=== PATIENT | male | born 1960 | race Caucasian/White ===

== ENCOUNTER 2019-11-19 06:34 | Emergency (ER) | payer SELFPAY ==
[2019-11-19 08:20] LABS: ABSOLUTE EOSINOPHILS # (AUTO) 0.2 10^3/uL (0.0-0.6); ABSOLUTE LYMPHOCYTES (AUTO) 1.6 10^3/uL (0.5-4.7); ABSOLUTE MONOCYTES (AUTO) 0.5 10^3/uL (0.1-1.4); ABSOLUTE NEUT (AUTO) 3.8 10^3/uL (1.7-8.2); BASOPHILS % (AUTO) 0.5 % (0-2); EOSINOPHILS % (AUTO) 2.6 % (0-6); HEMATOCRIT 40.3 % (37.9-51.0); HEMOGLOBIN 14.7 g/dL (13.5-17.0); LYMPHOCYTES % (AUTO) 26.1 % (13-45); MEAN CORPUSCULAR HEMOGLOBIN 34.5 pg (27.0-33.4); MEAN CORPUSCULAR HGB CONC 36.4 g/dL (32.0-36.0); MEAN CORPUSCULAR VOLUME 95 fl (80-97); MONOCYTES % (AUTO) 8.1 % (3-13); PLATELET COUNT 100 10^3/uL (150-450); RED BLOOD COUNT 4.25 10^6/uL (4.35-5.55); RED CELL DISTRIBUTION WIDTH 13.4 % (11.5-14.0); SEGMENTED NEUTROPHILS % (AUTO) 62.7 % (42-78); TOTAL CELLS COUNTED % (AUTO) 100 %
[2019-11-19 08:25] LABS: ALBUMIN 3.9 g/dL (3.5-5.0); ALKALINE PHOSPHATASE 67 U/L (38-126); ANION GAP 9 (5-19); ASPARTATE AMINO TRANSFERASE 25 U/L (17-59); BILIRUBIN,DIRECT 0.3 mg/dL (0.0-0.4); BILIRUBIN,TOTAL 0.8 mg/dL (0.2-1.3); BLOOD UREA NITROGEN 11 mg/dL (7-20); CALCIUM 9.4 mg/dL (8.4-10.2); CARBON DIOXIDE 27 mmol/L (22-30); CHLORIDE 102 mmol/L (98-107); GLUCOSE 157 mg/dL (75-110); POTASSIUM 4.2 mmol/L (3.6-5.0); TOTAL PROTEIN 6.6 g/dL (6.3-8.2)
--- NOTE | 2019-11-19 08:42 | EKG REPORT ---
SEVERITY:- ABNORMAL ECG - SINUS RHYTHM PROBABLE LEFT ATRIAL ABNORMALITY RBBB AND LAFB : Confirmed by: Jaun Burns MD 19-Nov-2019 08:42:25
--- NOTE | 2019-11-19 08:45 | RADIOLOGY REPORT (SQ) ---
EXAM DESCRIPTION: CHEST SINGLE VIEW IMAGES COMPLETED DATE/TIME: 11/19/2019 8:22 am REASON FOR STUDY: Sob COMPARISON: None. EXAM PARAMETERS: NUMBER OF VIEWS: One view. TECHNIQUE: Single frontal radiographic view of the chest acquired. RADIATION DOSE: NA LIMITATIONS: None. FINDINGS: LUNGS AND PLEURA: No opacities, masses or pneumothorax. No pleural effusion. MEDIASTINUM AND HILAR STRUCTURES: No masses. Contour normal. HEART AND VASCULAR STRUCTURES: Heart normal in size. Normal vasculature. BONES: No acute findings. HARDWARE: Pacemaker pain and sternotomy wires. OTHER: No other significant finding. IMPRESSION: NO ACUTE RADIOGRAPHIC FINDING IN THE CHEST. TECHNICAL DOCUMENTATION: JOB ID: [id number] [employer]- All Rights Reserved Reading location - IP/workstation name: [email or web address]
[2019-11-19 09:46] LABS: APPEARANCE,URINE CLEAR; BILIRUBIN,URINE NEGATIVE (NEGATIVE); COLOR,URINE YELLOW; GLUCOSE, URINE 50 mg/dL (NEGATIVE); KETONES,URINE NEGATIVE (NEGATIVE); LEUKOCYTE ESTERASE,URINE NEGATIVE (NEGATIVE); NITRITE,URINE NEGATIVE (NEGATIVE); PROTEIN,URINE NEGATIVE (NEGATIVE); URINE SPECIFIC GRAVITY 1.024
--- NOTE | 2019-11-19 11:56 | ER Document Report ---
Entered by ADDI MURRY SCRIBE 11/19/19 0729 Acting as scribe for:NICOLE CRYSTAL MD ED Respiratory Problem - General Chief Complaint: Shortness Of Breath Stated Complaint: SHORTNESS OF BREATH Mode of Arrival: Medic Information source: Patient Notes: This 59 year old male patient brought in by EMS from home presents to the ED today with complaints of sudden onset shortness of breath that started just prior to arrival. Patient states that he woke up and felt like he couldn't breathe and that the more he tried, the worse it became. Patient was alert and in no acute respiratory distress with stable vital signs per EMS, but they brought him in because of his cardiac history that includes hypertension. Patient notes that he had a aortic valve replacement in 2017 and required a pacemaker postop. He mentions a history of anxiety with panic attacks and states that this feels similar to prior episodes. He is a current every day smoker. Denies any chest pain, fever, chills, or cough. - Related Data Allergies/Adverse Reactions: No Known Allergies Allergy (Verified 11/19/19 06:53) Home Medications: metformin. Clopidogrel. Losartan. metoprolol. atorvastatin Past Medical History - General Information source: Patient - Social History Smoking Status: Current Every Day Smoker Chew tobacco use (# tins/day): No Smoking Education Provided: No Frequency of alcohol use: None Drug Abuse: None Family History: Reviewed & Not Pertinent - Past Medical History Cardiac Medical History: Reports: Hx Hypertension Endocrine Medical History: Reports: Hx Diabetes Mellitus Type 2 Psychiatric Medical History: Reports: Hx Anxiety Past Surgical History: Reports: Hx Appendectomy, Hx Cholecystectomy, Hx Orthopedic Surgery - Bilateral knee, left hip, Hx Pacemaker - 2016, Hx Valve Replacement - Aortic, 2017 Review of Systems - Review of Systems Constitutional: See HPI. denies: Chills, Fever EENT: No symptoms reported Cardiovascular: See HPI. denies: Chest pain Respiratory: See HPI, Short of breath. denies: Cough Gastrointestinal: No symptoms reported Genitourinary: No symptoms reported Male Genitourinary: No symptoms reported Musculoskeletal: No symptoms reported Skin: No symptoms reported Hematologic/Lymphatic: No symptoms reported Neurological/Psychological: No symptoms reported -: Yes All other systems reviewed and negative Physical Exam - Vital signs Vitals: Temp Pulse Resp BP Pulse Ox 97.8 F 66 19 140/59 H 98 11/19/19 06:58 11/19/19 06:58 11/19/19 06:58 11/19/19 06:58 11/19/19 06:58 - General General appearance: Appears well, Alert In distress: None - HEENT Head: Normocephalic, Atraumatic Eyes: Normal Pupils: PERRL - Respiratory Respiratory status: No respiratory distress Chest status: Nontender Breath sounds: Normal Chest palpation: Normal - Cardiovascular Rhythm: Regular Heart sounds: Normal auscultation, S1 appreciated, S2 appreciated Murmur: No Friction rub: No Gallop: None auscultated - Abdominal Inspection: Normal Distension: No distension Bowel sounds: Normal Tenderness: Nontender - Abdomen soft Organomegaly: No organomegaly - Back Back: Normal, Nontender - Extremities General upper extremity: Normal inspection General lower extremity: Normal inspection. No: Edema - Neurological Neuro grossly intact: Yes Orientation: AAOx4 [place] Coma Scale Eye Opening: Spontaneous [place] Coma Scale Verbal: Oriented [place] Coma Scale Motor: Obeys Commands [place] Coma Scale Total: 15 - Psychological Associated symptoms: Normal affect, Normal mood - Skin Skin Temperature: Warm Skin Moisture: Dry Skin Color: Normal Course - Re-evaluation Re-evalutation: 11/19/19 08:06 Patient resting comfortably at this time. Not having any signs of distress shortness of breath or chest pain. 11/19/19 11:43 Patient reports he has no further shortness of breath and has been comfortable since he has been in the emergency department without any distress. Denies any chest pain. Patient has had 2 troponin tests, and both are flat across at the normal less than detectable level. 11/19/19 11:52 Discussed with patient if he has been exposed to anyone with COVID-19. Patient states he has not been exposed anyone with COVID-19 that he is aware of and is never been tested for and prefers not to be tested because he does not believe he has it. Either. Patient reports that he has no symptoms of cough fever chills muscle aches diarrhea vomiting chills or fever sore throat or headache. Patient denies any loss of taste or smell and states he has none of the signs and symptoms - Vital Signs Vital signs: Temp Pulse Resp BP Pulse Ox 97.8 F 64 20 121/86 H 98 11/19/19 10:37 11/19/19 10:37 11/19/19 10:37 11/19/19 10:37 11/19/19 10:37 11/19/19 08:06 Vital signs stable pulse ox 98% on room air afebrile respiratory rate 19 and blood pressure 140/59 with a pulse of 66. 11/19/19 11:44 Vital signs are stable with a pulse ox of 98% respiratory rate 20 pulse of 64 afebrile and blood pressure is 121/86. - Laboratory Result Diagrams: 11/19/19 07:40 11/19/19 07:40 Laboratory results interpreted by me: 11/19/19 11/19/19 11/19/19 07:40 07:40 09:00 RBC 4.25 L MCH 34.5 H MCHC 36.4 H Plt Count 100 L Glucose 157 H Urine Glucose (UA) 50 H Urine Urobilinogen 4.0 H Glucose level is 157 patient is known diabetic and takes metformin. - Diagnostic Test Radiology reviewed: Image reviewed, Reports reviewed Radiology results interpreted by me: 11/19/19 09:03 Chest X-Ray 11/19/19 08:03 IMPRESSION: NO ACUTE RADIOGRAPHIC FINDING IN THE CHEST. Chest x-ray shows no acute process. - EKG Interpretation by Me Additional EKG results interpreted by me: 11/19/19 08:07 Twelve-lead EKG shows normal sinus rhythm rate of 65. Left atrial abnormality noted a right bundle branch block and a left anterior fascicular block noted. L left axis deviation. MA interval within normal range QT interval within normal range QRS widening with a right bundle branch block. No evidence for an acute STEMI. Discharge - Discharge Clinical Impression: Shortness of breath, Anxiety Condition: Stable Disposition: HOME, SELF-CARE Additional Instructions: Anxiety The physician feels that some of your health problems are being caused by anxiety. Anxiety affects your health in many ways. Anxiety alone can cause palpitations, sweats, chest pains, abdominal pains, shortness of breath, and headaches. It contributes to ulcer disease, high blood pressure, irritable bowel syndrome, and has been shown to cause flare-ups of many other diseases. Anxiety is not a simple disorder to treat. If the anxiety is due to recent life stresses, you may simply need time to "work through" the changes. If the anxiety is due to an underlying unhappiness with yourself or due to psychiatric disturbance, professional help will be needed. Your physician can refer you for further help if needed. Anti-anxiety medication is occasionally given if the stress is acute or if you are having trouble sleeping. Chronic or frequent use of these medications is not a good idea because the body becomes reliant on it, preventing you from dealing with life's normal stresses. Your complaint this morning was associated with a brief episode of shortness of breath this a.m. and per your history you believe it was due to an anxiety attack as you felt you could not get air in and out. I do recommend that you follow-up with your primary care physician regarding further evaluation of any anxiety disorder. There are no prescriptions added today to your discharge at this time. Forms: Smoking Cessation Education I personally performed the services described in the documentation, reviewed and edited the documentation which was dictated to the scribe in my presence, and it accurately records my words and actions.
[2019-11-19 12:18] VITALS: BP 140/75
== END 2019-11-19 12:18 | disposition home or self-care (01) ==
LOC: ER 06:34
DX: R06.02 Shortness of breath (principal); F41.9 Anxiety disorder, unspecified; I10 Essential (primary) hypertension; E11.9 Type 2 diabetes mellitus without complications; Z90.49 Acquired absence of other specified parts of digestive tract
CPT/HCPCS: 36415; 71045; 80053; 81001; 84484; 85025; 93005; 93010; 99285